=== PATIENT | female | born 1950 | race Two or more races ===

== ENCOUNTER 2018-10-06 13:53 | Outpatient (CLI) | payer OTHER ==
[~2018-10-06 13:53] MED LIST: CRESTOR5 MG PO; TAPAZOLE10 MG PO
== END 2018-10-06 14:00 | disposition home or self-care (01) ==
LOC: EKG 13:53
DX: I10 Essential (primary) hypertension (principal); Z01.818 Encounter for other preprocedural examination

== ENCOUNTER 2018-10-07 06:28 | Day surgery (SDC) | payer OTHER | END 2018-10-07 14:50 | disposition home or self-care (01) | LOC: CIR.AMB 06:28 | DX: M20.031 Swan-neck deformity of right finger(s) (principal) ==